=== PATIENT | female | born 1950 | race Two or more races ===

== ENCOUNTER 2023-03-24 21:15 | Emergency (ER) | payer OTHER ==
[~2023-03-24] VITALS: Ht 154.9 cm; Wt 57.2 kg
[2023-03-24] MEDS ORDERED: ESTRADIOL0.5 MG PO (21:36)
[2023-03-24] MEDS ORDERED: LYRICA20 MG/1 ML PO (21:40)
== END 2023-03-24 22:30 | disposition home or self-care (01) ==
LOC: ER 21:15
DX: M79.605 Pain in left leg (principal)
CPT/HCPCS: 96372; 99283; J1885